=== PATIENT | female | born 1940 | race Caucasian/White ===

== ENCOUNTER 2023-09-12 11:54 | Emergency (ER) | payer MEDICARE, BC, SELFPAY ==
[2023-09-12] VITALS (10 sets, daily range): BP systolic 97–180; BP diastolic 61–90; PULSE 69–89; BMI 27.6
[2023-09-12 13:00] LABS: % Basophils 0.9 % (0-2); % Eosinophils 1.3 % (0-6); % Immature Granulocytes 0.4 % (0-0.5); % Lymphocytes 15.9 % (20.5-51.1); % Monocytes 6.9 % (1.7-9.3); % Neutrophils 74.6 % (42.2-75.2); Absolute Basophils 0.1 10^3/uL (0-0.2); Absolute Eosinophils 0.1 10^3/uL (0-0.7); Absolute Lymphocytes 1.1 10^3/uL (1.2-3.4); Absolute Monocytes 0.5 10^3/uL (0.1-0.6); Absolute Neutrophils 5.1 10^3/uL (1.4-6.5); Hematocrit 41.4 % (37.0-47.0); Hemoglobin 14.5 g/dL (12.0-16.0); Mean Corpuscular Hgb 30.2 pg (27.0-31.0); Mean Corpuscular Volume 86.3 fL (81.0-99.0); Mean Platelet Volume 9.6 fL (7.4-10.4); Nucleated Red Blood Cells % 0 %; Platelet Count 228 10^3/uL (130-400); Red Cell Dist. Width 13.2 % (11.5-14.5); White Blood Cell Count 6.8 10^3/uL (4.8-10.8)
[2023-09-12 13:16] LABS: ALT (SGPT) 21 U/L (0-35); AST (SGOT) 30 U/L (14-36); Albumin 4.5 g/dl (3.5-5.0); Alkaline Phosphatase 99 U/L (38-126); Blood Urea Nitrogen 15 mg/dl (7-17); Calcium 10.1 mg/dl (8.4-10.2); Carbon Dioxide 24 mmol/L (22-30); Chloride 104 mmol/L (98-107); Glucose 101 mg/dl (70-99); Sodium 139 mmol/L (135-145); Total Bilirubin 0.7 mg/dl (0.2-1.3); Total Protein 7.4 g/dl (6.3-8.2); eGFR > 60.00
[2023-09-12] MEDS: NSS 1000 IV (14:49)
[2023-09-12 16:31] LABS: Urine Albumin Negative (Neg - Trace); Urine Bilirubin Negative (Negative); Urine Character Slightly Cloudy (Clear); Urine Color Yellow; Urine Glucose Negative (Negative); Urine Ketone 2+ (Negative); Urine Leukocyte Trace (Negative); Urine Nitrite Negative (Negative); Urine Occult Blood Negative (Negative); Urine Specific Gravity 1.015 (<1.030); Urine Urobilinogen Negative (Neg - 1+)
[2023-09-12 16:40] LABS: Urine Red Blood Cell None Seen /HPF (0-2); Urine Squamous Cell 0-2 /LPF (Few); Urine White Cell 0-2 /HPF (0-5)
--- NOTE | 2023-09-12 17:31 | ED.GENMED ---
History of Present Illness
General
Chief Complaint: Dizziness
Source: patient
Exam Limitations: none
Time Seen by Provider: 09/12/23 13:54
Travel History
Have you had any contact with someone who has COVID-19?: No
Do you have any symptoms of coronavirus? Fever > 100 degrees, chills, cough, shortness of breath, sore throat, loss of taste or smell, muscle aches, or headache?: No
History of Present Illness
History of Present Illness:
82-year-old female presents with sister and [id number] who she is staying with temporarily for the holiday with complaints of weakness and. She states his dizziness seems to have happened last several days in the morning. She stands up and
when standing she feels dizzy and lightheaded like she is going to pass out. They have had to sit her down. They think yesterday she did have a passing out episode. She has a history of depression. No chest pain or headache. No vision change.
No unilateral numbness or weakness. No nausea or vomiting. No other complaints at this time. They do note slight decrease in intake
Phy Exam
Physical Exam
Physical Exam:
General: Well-appearing female no acute respiratory distress
HEENT: Normocephalic atraumatic
Heart: Regular rate and rhythm no murmurs
Lungs: Clear to auscultation bilaterally no wheezing
Neurologic exam: Alert and oriented x 3 no facial asymmetry or slurred speech no ataxia finger-nose [id number] intact no drift negative Newman-Hallpike
Extremities: No cyanosis
Course
Orders/Labs/Results
Orders:
Orders
09/12/23 12:01
Electrocardiogram (*1) Urgent
Reason for Study: Chest Pain
EKG- Treatment ONCE
09/12/23 12:35
Complete Blood Count/With Diff Urgent
Comprehensive Metabolic Panel Urgent
09/12/23 14:12
CT Head W/o Iv Contrast Urgent
Comment:
Reason For Exam: dizzy
Orthostatic VS- Treatment ONCE
09/12/23 14:42
0.9% Sodium Chloride 1000 ml [Nss] 1,000 ml IV BOLUS
09/12/23 16:22
Urinalysis Reflex To Culture Urgent
Date Specimen was Collected: 09/12/23
Time Specimen was Collected: 16:18
Urine Microscopic Reflex Cult Urgent
Abnormal Lab Results
09/12/23 09/12/23
12:35 16:22
Absolute Lymphs (auto) 1.1 L 10^3/uL
(1.2-3.4)
Lymphocytes % 15.9 L %
(20.5-51.1)
Glucose 101 H mg/dl
(70-99)
Urine Ketones 2+ A
(Negative)
Leukocyte Esterase Rfl Trace A
(Negative)
09/12/23 12:35
09/12/23 12:35
Vital Signs
Initial and Last Documented VS:
Initial Vital Signs
Temp Pulse Resp BP Pulse Ox
98.2 F 80 19 137/78 98
09/12/23 11:56 09/12/23 11:56 09/12/23 11:56 09/12/23 11:56 09/12/23 11:56
Last Documented Vital Signs
Temp Pulse Resp BP Pulse Ox
98.2 F 75 19 173/73 99
09/12/23 11:56 09/12/23 17:00 09/12/23 17:00 09/12/23 16:00 09/12/23 17:00
MDM/Problems Addressed
Differential Diagnosis Includes:
Patient with lightheadedness/dizziness. Pretty benign exam initially on assessment. Will check labs orthostatics and CT. Question possible hypotension versus vertigo however exam not consistent with vertigo
*Critical Care Note
Total Time (30-74mins, 75-104mins- exclusive of procedures): Not Applicable
Update Note
Update Note:
CT negative. Patient did tilt significantly with orthostatic vital signs. She received a liter of fluid and is now ambulatory without any lightheadedness or dizziness. Suspect symptoms may be related to orthostatic hypotension. Recommended
continued hydration at home. Stable for discharge
ED Attending Note
-
Portions of this chart may have been created with voice recognition software.� Occasional wrong word or��sound alike� substitutions may have occurred due to the inherent limitations of voice recognition software.
Discharge Plan
Departure
Patient Disposition: Home (Routine Discharge)
Date of Disposition: 09/12/23
Time of Disposition: 17:34
Patient with high blood pressure during this ER visit?: No
Discharge Problem:
Acute dehydration
Instructions: Dizziness
Referrals:
Steffi Barfield MD [Family Provider] -
Activity Restrictions/Additional Instructions:
Rest. Drink plenty fluids. Return here for worsening symptoms otherwise follow-up with your doctor. I suspect your symptoms may be related to dehydration
Interventions
Interventions:
*Risk Screen - Suicide Last Done: 09/12/23 11:56
*General Assessment Last Done: 09/12/23 11:56
*Neglect/Abuse Screening Last Done: 09/12/23 11:56
ED- Fall Risk Assessment Last Done: 09/12/23 13:57
*ED COVID-19 Vaccine History Last Done: 09/12/23 14:03
ED- Neurological Assessment Last Done: 09/12/23 13:57
ED- Cardiac Assessment Last Done: 09/12/23 13:57
ED Swallowing Screen Last Done: 09/12/23 14:03
Discharge Date and Time
Print Language: [id number]
== END 2023-09-12 17:48 | disposition home or self-care (01) ==
LOC: EMR 11:54
PROVIDERS: Emergency Medicine; Physician Assistant; EMERGENCY PHYSICIAN Emergency Medicine; FAMILY PHYSICIAN Family Medicine
DX: E86.0 Dehydration (principal)
CPT/HCPCS: 99284; 96360; 70450; 80053; 81003; 81015; 85025; 93005